=== PATIENT | female | born 1990 | race Caucasian/White ===

== ENCOUNTER 2021-07-10 16:00 | Inpatient (IN) | payer OTHER, SELFPAY ==
[2021-07-10] VITALS (48 sets, daily range): BP systolic 98–153; BP diastolic 54–87; PULSE 68–104; TEMP 36.6–37.6; O2SAT 95–100; BMI 37.8
[2021-07-10] MEDS: Lactated Ringers 500 ML 999 ML IV ×2 (16:25→17:53)
[2021-07-10 16:45] LABS: Absolute Neutrophil Count 9.8 X10^3/uL (2.0-7.7); Basophil# 0.02 X10^3/uL; Basophil% 0.2 % (0-1); Eosinophil# 0.06 X10^3/uL; Eosinophils% 0.5 % (0-5); Hematocrit 39.1 % (37-47); Hemoglobin 13.3 g/dL (12.0-15.0); Lymphocyte % 13.8 % (19-41); Mean Corpuscular Hgb 31.7 pg (27.0-32.0); Mean Corpuscular Volume 93.1 fL (81-99); Mean Platelet Vol. 9.7 fl (6.2-12.0); Monocyte# 0.61 X10^3/uL; NRBC Flagged by Analyzer 0 % (0-5); Neutrophil # 9.83 X10^3/uL (2.7-7.7); Platelet Count 203 K/mm3 (150-450); RBC Distribution Width CV 13.3 % (11.6-14.6); RBC Distribution Width SD 45.2 fl (35.1-43.9); White Blood Count 12.3 K/mm3 (4.4-11.0)
[2021-07-10] MEDS: Lactated Ringers 1,000 ML 200 ML IV (16:56)
[2021-07-10] MEDS: fentaNYL-bupivacaine (epidural) 100 ML BAG EPIDURAL (18:56)
[2021-07-10] MEDS: Ondansetron 4 MG/2 ML Vial IV (19:11)
--- NOTE | 2021-07-10 20:24 | HP.PCM.OB_ITS ---
HPI - General General Date of Admission: 07/10/21 HPI Narrative STEPHANIE DORMAN, is a 31 F who presents Maternal Data Information Final TERRELL: 07/09/21 Gestational age: 40 1/7 [facility] Medical History (Updated 07/10/21 @ 20:[address] Cheyanne Hugo MD) Anxiety Back pain Depression Fatigue Hemorrhoids Migraines Polyhydramnios depression Home Medications ferrous sulfate 325 mg PO QODAY 07/10/21 [History Last Taken 07/10/21 10:30] [id number] [] 1 tab PO DAILY 07/10/21 [History Last Taken 07/10/21 10:30] sertraline [Zoloft] 50 mg PO DAILY 07/10/21 [History Last Taken 07/10/21 07:30] Allergy/AdvReac Type Severity Reaction Status Date / Time No Known Allergies Allergy Unverified 01/15/18 11:37 Family History (Updated 01/15/18 @ 11:39 by Felecia Lay) Mother Hypertension Social History (Updated 01/15/18 @ 11:49 by Konstantin QUEVEDO, PA) Smoking Status: Current every day smoker alcohol intake: never History Elective abortions Hx Para 1 Spontaneous abortions Hx # Term Pregnancies Ectopic pregnancies Hx # Pregnancies Multiple births # of living children ROS Constitutional Constitutional: Denies fatigue, fever(s) or malaise Eyes Eyes: Denies change in vision ENT HEENT: Denies dizziness or headache(s) Cardiovascular Cardiovascular: Denies chest pain, dyspnea or lightheadedness Respiratory/Chest Respiratory/Chest: Denies cough or dyspnea Gastrointestinal Gastrointestinal: Denies change in bowel habits Genitourinary Genitourinary: Denies burning urination or genital lesions Integumentary Integumentary: Denies rash Neurologic Neurologic: Denies confusion, dizziness, headache(s), numbness or weakness Vital Signs Vital Signs Vital Signs: 07/10/21 16:19 07/10/21 16:22 07/10/21 16:49 Temperature 98.4 F Temperature Source Pulse Rate 91 88 Blood Pressure 138/84 H 122/71 H BP Systolic 138 122 BP Diastolic 84 71 Pulse Ox 97 97 07/10/21 16:51 07/10/21 18:01 07/10/21 18:26 Temperature 97.9 F Temperature Source Pulse Rate 82 Blood Pressure 126/68 H BP Systolic 126 BP Diastolic 68 Pulse Ox 97 07/10/21 18:27 07/10/21 18:31 07/10/21 18:32 Temperature Temperature Source Pulse Rate 79 76 Blood Pressure 142/78 H 120/72 BP Systolic 142 120 BP Diastolic 78 72 Pulse Ox 98 07/10/21 18:36 07/10/21 18:37 07/10/21 18:41 Temperature Temperature Source Pulse Rate 93 90 81 Blood Pressure 153/87 H BP Systolic 153 BP Diastolic 87 Pulse Ox 98 98 07/10/21 18:42 07/10/21 18:46 07/10/21 18:47 Temperature Temperature Source Pulse Rate 82 81 Blood Pressure 133/79 H 131/81 H BP Systolic 133 131 BP Diastolic 79 81 Pulse Ox 98 07/10/21 18:52 07/10/21 18:57 07/10/21 19:02 Temperature Temperature Source Pulse Rate 84 90 88 Blood Pressure 136/82 H 151/85 H 125/57 H BP Systolic 136 151 125 BP Diastolic 82 85 57 Pulse Ox 97 95 98 07/10/21 19:07 07/10/21 19:12 07/10/21 19:17 Temperature Temperature Source Pulse Rate 78 82 77 Blood Pressure 112/54 L 117/56 L 110/58 L BP Systolic 112 117 110 BP Diastolic 54 56 58 Pulse Ox 99 100 99 07/10/21 19:22 07/10/21 19:23 07/10/21 19:27 Temperature 97.9 F Temperature Source Temporal Pulse Rate 75 72 Blood Pressure 104/56 L BP Systolic 104 BP Diastolic 56 Pulse Ox 100 100 07/10/21 19:28 07/10/21 19:32 07/10/21 19:34 Temperature Temperature Source Pulse Rate 72 96 70 Blood Pressure 98/55 L 125/62 H BP Systolic 98 125 BP Diastolic 55 62 Pulse Ox 98 07/10/21 19:37 07/10/21 19:42 07/10/21 19:54 Temperature Temperature Source Pulse Rate 76 73 Blood Pressure BP Systolic BP Diastolic Pulse Ox 99 100 100 07/10/21 19:55 Temperature 98.1 F Temperature Source Temporal Pulse Rate 68 Blood Pressure 137/74 H BP Systolic 137 BP Diastolic 74 Pulse Ox 100 Weight Weight: 99.8 kg Body Mass Index (BMI) 37.8 Physical Exam Const alert and no apparent distress General Appearance: cooperative HEENT normocephalic Resp normal respiratory effort Cardio regular rate GI soft to palpation GI Narrative: gravid, nontender, appropriate for gestational age Extremity no calf tenderness General Extremity: edema Skin no wounds Rashes: No rashes noted Psych activity/motor behavior normal Labs Labs Labs: Blood Type O POSITIVE Antibody Screen NEGATIVE Hct 39.1 % (37-47) Hgb 13.3 g/dL (12.0-15.0) Assessment & Plan (1) 40 weeks gestation of : PLAN: 2 para 1 at 40-1/7 weeks gestation with spontaneous labor.31-year-old May have epidural if needed. Estimated weight is less than 4500 g and pelvis is clinically adequate for expect vaginal delivery. (2) Multigravida in third trimester:
[2021-07-10] MEDS: Oxytocin 30 units/NS 500 ml 30 UNITS/500 ML IV.SOLN 334 UNITS IV (20:36)
--- NOTE | 2021-07-10 20:47 | EX.PCM.OBRPT ---
Maternal Data Information Final TERRELL: 07/09/21 Gestational age: 40 1/7 Vaginal Delivery Maternal Presentation Maternal Presentation: Active Labor Operative Information Date of Procedure: 07/10/21 Pre-Operative Diagnosis: labor Post-Operative Diagnosis: same Surgery / Procedure Performed: Spontaneous Vaginal Delivery Type of Anesthesia: Epidural Special Medications: none Drain: Perez to straight drain Estimated Blood Loss: 300 Time of Delivery: 20:33 Findings Description of Procedure: A vigorous female infant was delivered DOMINICK over a second-degree perineal laceration. The remainder the infant was delivered with maternal pushing and gentle traction only in less than 15 seconds. The Pitocin infusion was initiated for active management of the third stage. The cord was clamped and cut after 1 minute. The infant was attended to by the waiting nursing staff. The placenta was delivered spontaneously and intact. The cervix and vagina were intact. The second-degree perineal laceration was repaired with 3-0 Vicryl suture in a running standard fashion. Sponge and needle counts were correct. A vaginal sweep was completed by me. Presentation: DOMINICK Amniotic Membrane Rupture Type: Artificial Amniotic Fluid Description: Lightly stained meconium Placental Delivery Description: Spontaneous Placenta Disposition: [facility] Cord Vessel Description: 3 Vessels Cord Entanglement: None Infant A Gender: Female (Luli) (1 minute): 8 (5 minute): 9 Delayed Cord Clamping: Yes Post Vaginal Delivery Medications Given After Delivery: IV Pitocin Episiotomy Description: None Laceration: 2nd degree Complication Complications: None Admit VTE Documentation VTE Present on Admission: No VTE Pharm Prophylaxis Ordered: No Reason Prophylaxis Not Ordered: Procedure Not Indicated
[2021-07-11] VITALS (9 sets, daily range): BP systolic 114–140; BP diastolic 64–91; PULSE 68–82; RESP 16–18; TEMP 36.2–37.1; O2SAT 95–97
[2021-07-11] MEDS: Naproxen 500 MG Tablet PO ×3 (01:20→20:43)
[2021-07-11] MEDS: Hydrocortisone 2.5% Crm 1 APPLIC TOPICAL (01:21)
[2021-07-11] MEDS: Acetaminophen 500 MG Tablet 1000 MG PO ×2 (05:09→16:07)
--- NOTE | 2021-07-11 08:10 | PCM.PN.OB ---
Subjective Subjective Patient seen at bedside. Feeling good. Denies any pain. Bottle feeding . Ambulating and voiding without difficulty. Anticipates discharge home tomorrow. Objective Data Objective Data Vital Signs: Vital Signs Temp Pulse Resp BP Pulse Ox 97.1 F L 70 16 139/91 H 97 07/11/21 08:24 07/11/21 08:24 07/11/21 08:24 07/11/21 08:24 07/11/21 00:44 Oxygen Delivery Method Room Air Weight: 220 lb 0.341 oz Body Mass Index (BMI) 37.8 Intake & Output: Intake and Output for Last 24 Hours 07/09/21 07/10/21 07/11/21 23:59 23:59 23:59 Intake Total 2115.44 / 2115.44 Output Total 1400 / 1400 Balance 2115.44 / 2115.44 -1400 / -1400 Lab / Micro Data Result Diagrams: 07/10/21 16:40 Labs: Laboratory Results - last 24 hr 07/10/21 16:40: WBC 12.3 H, RBC 4.20, Hgb 13.3, Hct 39.1, MCV 93.1, MCH 31.7, MCHC 34.0, RDW Std Deviation 45.2 H, RDW Coeff of Mahesh 13.3, Plt Count 203, MPV 9.7, Immature Gran % (Auto) 0.500, Neut % (Auto) 80.0 H, Lymph % (Auto) 13.8 L, [place] % (Auto) 5.0, Eos % (Auto) 0.5, Baso % (Auto) 0.2, Absolute Neuts (auto) 9.8 H, Absolute Lymphs (auto) 1.70, Nucleated RBC % 0 07/10/21 16:40: Blood Type O POSITIVE, Antibody Screen NEGATIVE Micro: Microbiology 07/10/21 16:25 Mucosa - Nose SARS-CoV-2 Antigen (Rapid) - Final ROS Eyes Eyes: Denies blurry vision, change in vision or spots in vision ENT HEENT: Denies dizziness or headache(s) Cardiovascular Cardiovascular: Denies abdominal pain, chest pain or dyspnea Respiratory/Chest Respiratory/Chest: Denies cough, dyspnea, shortness of breath at rest or shortness of breath with exertion Gastrointestinal Gastrointestinal: Denies abdominal pain, diarrhea or vomiting Genitourinary Genitourinary: Denies change in urinary stream, difficulty urinating or dysuria Musculoskeletal Musculoskeletal: Reports none Integumentary Integumentary: Denies rash Neurologic Neurologic: Denies dizziness, headache(s), memory loss or weakness Physical Exam Const alert and no apparent distress General Appearance: cooperative and comfortable Exam Limitations: no limitations HEENT normocephalic Eyes General Eye: normal appearance of both eyes Neck full ROM General: normal visual inspection Chest Chest: symmetrical chest wall rise Resp normal respiratory effort and normal air movement Effort and Inspection: symmetric chest movement Auscultation: clear to auscultation bilaterally Cardio regular rate and regular rhythm GI normal to inspection, nondistended, normoactive bowel sounds Back/Spine normal ROM Extremity full ROM and no calf tenderness General Extremity: normal exam except as noted Skin no rashes or lesions noted Neuro CN's II-XII intact bilaterally Psych mental status grossly normal Assessment & Plan (1) (spontaneous vaginal delivery): (2) Laceration, obstetrical, second degree: PLAN: PPD #1 Routine care Pain control Anticipate discharge home in AM
[2021-07-11] MEDS: Sertraline 50 MG Tablet PO (09:23)
--- NOTE | 2021-07-11 16:58 | ED.RN ---
Pt arrived back to room from surgery in bed. Pt in stable condition. Pt assist x1 for first Restroom use.
--- NOTE | 2021-07-11 18:27 | CASEMGMT ---
Addendum entered by Rubi Renteria 07/11/21 18:51: [place] apgars 8/9. Rubi Renteria OUTPATIENT COORDINATOR LISWS Original Note: SW Note Referral Source: MD Referral Reason: History of anxiety and depression Mother: Nita Deras PNC: [facility] Control: Condom Baby: Luli Weight: 7# 4 ounces Spool Salvager: [facility]. NB has appointment with Dr. Rivero tomorrow. Bottle Feeding Other Children: Angel, age 4 (5 in July) Housing: Patient, , Angel and FOB reside in a house in [place]. They are hoping to buy a home soon. Transportation: Patient drives and has access to a car Supplies: Patient repots she has all baby supplies including a carseat for . Support: Patient said that her supports are the FOB, patient's mother and patient's sister. Educational Level: Patient graduated from high school. No learning issues or needs. Employment: Patient was employed at [employer] till April and then took time off. Patient said that she is still undecided if she will return to work or stay at home. Agency Involvement: No agency involvement including CPS, Legal, counseling and DJFS benefits. FOB: Thang Time Together: 12 years, 10 years Involved at : FOB was observed holding and interacting with the . He plans to be involved in the nb's life. Employment: FODemario works at [employer]. He returns back to work on Saturday. Patient is father to both Luli and Angel. 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 Patient said that she was living away from family in a small apartment and was always so concerned that when he cried that the neighbors would call CPS. Patient said that she was overprotective of Angel. Patient said that when Angel was 3 months old she went to a doctor as she said she felt sad and got on Buspar. Patient said that between medication, moving home and having support and then Angel getting sleep she felt better. Patient said that she then was changed to lexapro but she indicated to the MD that she did not like how it made her feel. Patient said that she began to take zoloft a couple of months before the and plans to continue to take it. 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 Patient said that when she began to take zoloft she felt like herself. Patient said that she is comfortable going home and has no concerns. Patient is currently taking 50mg of zoloft. Patient was educated on Post Depression, Safe Sleep and Never Shake a baby. Patient denied any alcohol or drug use. SW met with patient in the presence of her , Thang (FOB). Patient and FOB both held the and appeared to appropriately interact with the . Patient was bonding with the . Patient appeared very happy and comfortable with the . Patient and FOB voiced no concerns. Patient was advised that if she was ever in crisis that the Emergency Room is open 17/06 and she verbalized that was good information to know. Patient was provided with handout on 10 facts about depression and anxiety, Depression and anxiety and post support number, [facility] Moms of Newborns handout, depression handout with symptoms checklist, Safe Sleep, HMG information, counseling resources and on line resources for post mood and anxiety. MICHELLE spoke to RN caring for patient. She voiced no concerns or issues regarding patient and/. Plan: Home at discharge with nb.
[2021-07-12 01:40] VITALS: BP 114/70; PULSE 66; RESP 18; TEMP 36.5; O2SAT 97
--- NOTE | 2021-07-12 08:32 | PCM.PN.OB ---
Subjective Subjective pt seen at bedside doing well. Patient reports good pain control. Mild lochia. Bottlefeeding. Voiding without difficulty. Objective Data Objective Data Vital Signs: Vital Signs Temp Pulse Resp BP Pulse Ox 97.7 F L 66 18 114/70 97 07/12/21 01:40 07/12/21 01:40 07/12/21 01:40 07/12/21 01:40 07/12/21 01:40 Oxygen Delivery Method Room Air Weight: 99.8 kg Body Mass Index (BMI) 37.8 Intake & Output: Intake and Output for Last 24 Hours 07/10/21 07/11/21 07/12/21 23:59 23:59 23:59 Intake Total 2115.44 / 2115.44 Output Total 1400 / 1400 Balance 2115.44 / 2115.44 -1400 / -1400 Lab / Micro Data Result Diagrams: 07/10/21 16:40 Micro: Microbiology 07/10/21 16:25 Mucosa - Nose SARS-CoV-2 Antigen (Rapid) - Final Physical Exam Const alert and oriented x3 General Appearance: cooperative HEENT normocephalic Neck General: normal visual inspection GI soft to palpation and non-distended GI Narrative: Fundus firm Extremity normal to inspection and no calf tenderness Skin no rashes or lesions noted Neuro oriented x3 and CN's II-XII intact bilaterally Psych mental status grossly normal Assessment & Plan (1) (spontaneous vaginal delivery): (2) Laceration, obstetrical, second degree: PLAN: PPD# 2 , Doing well Routine care pain mgmt ambulation dc home
--- NOTE | 2021-07-12 08:34 | PCM.DC ---
Discharge Instructions Diet Discharge Diet: No restrictions Activity May resume sexual activity in: 6-8 weeks Dressing / Incision Call your doctor if you observe: Fever of 101 or Higher, Inability to urinate, Using more than 1 pad per hour and Uncontrolled pain Follow Up Care Please Follow Up With: Lana Haney MD When: 1-2 weeks post and again at 6 weeks post . [phone] Test Results: Test results from this visit will be discussed in further detail at your follow-up appointment, if applicable. Discharge Plan Admission Admit Date/Time: 07/10/21 16:00 Attending Provider: Cheyanne Hugo Discharge Orders/Prescriptions Prescriptions: New naproxen 500 mg Tablet 500 mg PO Q8H PRN PRN (Reason: Pain Score 1-3) Qty: 0 RF: 0 Continued ferrous sulfate 325 mg (65 mg iron) Tablet 325 mg PO QODAY RF: 0 [id number] 1 mg Tablet 1 tab PO DAILY RF: 0 sertraline [Zoloft] 50 mg Tablet 50 mg PO DAILY RF: 0
[2021-07-12 10:05] VITALS: BP 115/72; PULSE 72; RESP 16; TEMP 36.6
[2021-07-12] MEDS: Sertraline 50 MG Tablet PO (10:31)
== END 2021-07-12 10:35 | disposition home or self-care (01) | DRG 807 ==
PROVIDERS: Admitting Provider Obstetrics & Gynecology; Visit Provider Obstetrics & Gynecology
DX: O99.344 Other mental disorders complicating childbirth (principal); Z37.0 Single live birth; F41.9 Anxiety disorder, unspecified; Z3A.40 40 weeks gestation of pregnancy; F32.9 Major depressive disorder, single episode, unspecified; Z79.899 Other long term (current) drug therapy; F17.200 Nicotine dependence, unspecified, uncomplicated; O99.334 Smoking (tobacco) complicating childbirth; O70.1 Second degree perineal laceration during delivery
CPT/HCPCS: 59025; 59050; 85025; 86850; 86900; 86901; 87426; 99218; J7120; G0378; J2405